=== PATIENT | female | born 1955 ===

== ENCOUNTER 2018-12-06 15:17 | Outpatient (CLI) | payer OTHER | END 2018-12-06 16:00 | disposition home or self-care (01) | LOC: NUCLEAR 15:17 | DX: I83.819 Varicose veins of unspecified lower extremity with pain (principal); R26.2 Difficulty in walking, not elsewhere classified ==

== ENCOUNTER 2018-12-13 09:35 | Outpatient (CLI) | payer OTHER | END 2018-12-13 10:19 | disposition home or self-care (01) | LOC: NUCLEAR 09:35 | DX: I73.9 Peripheral vascular disease, unspecified (principal) ==